=== PATIENT | female | born 1990 | race African-American/Black ===

== ENCOUNTER 2017-02-20 01:36 | Inpatient (IN) ==
[2017-02-20] MEDS ORDERED: BUTORPHANOL 2 MG/ML VIAL IV PRN ×2 (02:56→07:40)
[2017-02-20] MEDS ORDERED: ONDANSETRON 4 MG/2 ML VIAL IV PRN ×2 (02:57→16:26)
[2017-02-20] MEDS: LACTATED RINGERS 1,000 ML IV SCH ×2 (03:00→04:36)
[2017-02-20] MEDS ORDERED: CITRIC ACID/SODIUM CITRATE 30 ML UDCUP PO ONE (07:45)
[2017-02-20] MEDS ORDERED: diphenhydrAMINE 50 MG/1 ML VIAL IV PRN ×2 (07:45)
[2017-02-20] MEDS ORDERED: PROMETHAZINE 25 MG/1 ML VIAL IM ONE (07:45)
[2017-02-20] MEDS ORDERED: hydrOXYzine HCL 25 MG/1 ML VIAL IM PRN (07:45)
[2017-02-20] MEDS ORDERED: fentaNYL 2 MCG/ROPIV 0.2% EPID 150 ML EPIDURAL SCH (07:45)
[2017-02-20] MEDS ORDERED: ePHEDrine 50 MG/ML AMP IV PRN (07:45)
[2017-02-20] MEDS ORDERED: LACTATED RINGERS 1,000 ML IV ONE (07:45)
[2017-02-20] MEDS ORDERED: FAMOTIDINE 20 MG/2 ML VIAL IV ONE (07:45)
[2017-02-20 07:57] LABS: Basophils % 0.3 % (0.0-0.8); Eosinophils # 0.1 10*3/uL (0.0-0.87); Eosinophils % 0.8 % (0.00-10.9); Hematocrit 32.1 VOL% (35.7-47.0); Hemoglobin 11.3 GM/DL (12.0-16.0); Immature Granulocytes % 1.5 %; Immature Granulocytes Absolute 0.17 #; Lymphocytes # 1.7 10*3/uL (1.4-4.0); Lymphocytes % 15.5 % (21.3-54.2); Mean Corpuscular HGB Conc 35.2 GM/DL (32-36); Mean Corpuscular Hemoglobin 32 PG (27-34); Mean Corpuscular Volume 90.9 FL (87-102); Mean Platelet Volume 9.6 FL (9.6-12.0); Monocytes # 1.1 10*3/uL (0.11-0.8); Monocytes % 9.5 % (1.7-12.7); Neutrophils # 8.1 10*3/uL (1.4-7.4); Neutrophils % 72.4 % (38.7-73.9); Platelet Count 160 T/CUMM (130-400); Red Blood Count 3.53 MC/CUMM (3.8-5.5); Red Cell Distribution Width 12.9 % (9.3-17.3); White Blood Count 11.2 T/CUMM (4-12)
[2017-02-20] MEDS ORDERED: LACTATED RINGERS 1,000 ML IV SCH (08:00)
[2017-02-20] MEDS ORDERED: OXYTOCIN/LR 20 UNIT/1,000 ML BAG IV SCH (08:00)
[2017-02-20] MEDS ORDERED: PENICILLIN G POTASSIUM INJ 6,000,000 UNIT in SODIUM CHLORIDE 0.9% 100 ML IV ONE (08:25)
[2017-02-20 09:55] LABS: Rubella Antibody IgG 227.5 IU/ML
[2017-02-20 10:46] LABS: Hepatitis B Surface Ag Quant 0.45 Index; Hepatitis B Surface Ag Result Negative (Negative)
[2017-02-20 11:42] LABS: HIV Antigen/Antibody Result Nonreactive (Nonreactive)
--- NOTE | 2017-02-20 11:52 | OB/GYN History & Physical ---
History of Present Illness Chief complaint: contractions History of present illness: Ms. Hussein is a 26 year old female admitted early this morning with complaints of contractions. 39 4/7 wks. 3 visits. Elective augmentation of contractions. R/B/A reviewed. Pt elects to proceed. H/o substance abuse. Home Medications Medication Instructions Recorded Confirmed Type Pnv No.95/Ferrous Fum/Folic AC 1 each PO DAILY 10/18/16 02/20/17 History [ Tablet] Allergies Allergy/AdvReac Type Severity Reaction Status Date / Time No Known Allergies Allergy Verified 12/03/15 21:29 Medical,Surgical,& Family Hx - Medical History Cardio: No history of: PVD - Surgical History Cardiac Surgeries: Patient Denies: Cardiac Catheterization HEENT Surgeries: Surgical HX of: Tonsilectomy & Adenoidectomy - Family History Family History: Reports;: Family Diabetes (mother, pgm), Family Hypertension ( fmg) Denies;: Family Cancer - Social History Smoking Status: Current every day smoker Frequency of Alcohol Use: None 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 FHTs reassuring. AROM , non particulate, green. 4/60/-1) Assessment and Plan (1) 39 weeks gestation of Status: Acute Assessment and plan: Continue Pitocin AROM 1145 Anticipate Current Visit: Yes Results - Labs CBC & BMP: 02/20/17 07:48
[2017-02-20 12:31] LABS: Barbiturates Screen,Urine Negative (Negative); Benzodiazepines Screen,Urine Negative (Negative); Cannabinoid Screen,Urine Positive (Negative); Opiate Screen,Urine Negative (Negative); Phencyclidine Screen,Urine Negative (Negative)
[2017-02-20] MEDS ORDERED: PENICILLIN G POTASSIUM INJ 3,000,000 UNIT in SODIUM CHLORIDE 0.9% 100 ML IV SCH (13:00)
--- NOTE | 2017-02-20 14:17 | Event Note ---
DELIVERY NOTE of female in [facility] presentation after pushing over 3 contractions. Pitocin was started this morning at ~ 0700. AROM at 1145, 4 cm. 7 lbs 3 oz with APGARS of 8/9. Spontaneous delivery of intact placenta. EBL 300 cc. Bilateral periuretheral tears. Hemostatic NICU present for delivery. Mom and baby doing well.
[2017-02-20 14:39] LABS: Apearance,Urine Clear (Clear); Bilirubin,Urine Negative (Negative); Blood, Urine NEGATIVE (Negative); Glucose,Urine (UA) Negative (Negative); Ketones,Urine Negative (Negative); Nitrite,Urine Negative (Negative); Protein,Urine Negative; RBC,Urine 2 /HPF (0-4); Squamous Epithelial Cell,Urine Occasional /HPF (0-10); Urine Color Straw (Yellow); Urine Specific Gravity 1.015 (1.001-1.035); Urine Urobilinogen 0.2 EU/DL (0.2-1.0); WBC,Urine <1 /HPF (0-6)
[2017-02-20 14:40] LABS: Cord Arterial Blood HCO3 25.7 MMOL/L
[2017-02-20 14:46] LABS: Cord Venous Blood HCO3 22.4 MMOL/L; Cord Venous Blood PCO2 49.3 MMHG
[2017-02-20] MEDS ORDERED: WITCH HAZEL PADS 100/JAR TOP PRN (16:26)
[2017-02-20] MEDS ORDERED: RHO(D) IMMUNE GLOBULIN 300 MCG SYRINGE IM ONE (16:26)
[2017-02-20] MEDS ORDERED: DIPH/TET/ACEL PERT BOOSTER VACCINE 0.5 ML VIAL IM ONE (16:26)
[2017-02-20] MEDS ORDERED: BISACODYL 10 MG SUPP RECTAL PRN (16:26)
[2017-02-20] MEDS ORDERED: ACETAMINOPHEN 325 MG TABLET PO PRN (16:26)
[2017-02-20] MEDS ORDERED: LANOLIN 50% CREAM 0.3 OZ TUBE TOP PRN (16:26)
[2017-02-20] MEDS ORDERED: MEASLES/MUMPS/RUBELLA VACCINE 0.5 ML VIAL SUBCUT ONE (16:26)
[2017-02-20] MEDS ORDERED: HYDROCORTISONE 2.5% RECTAL CREAM 30 GM TUBE TOP PRN (16:26)
[2017-02-20] MEDS ORDERED: BENZOCAINE 20%/MENTHOL 0.5% SPRAY 56 GM CAN TOP PRN (16:26)
[2017-02-20] MEDS: IBUPROFEN 800 MG TABLET PO SCH (18:33)
[2017-02-20] MEDS: DOCUSATE SODIUM 100 MG CAPSULE PO SCH (20:10)
[2017-02-20] MEDS ORDERED: OXYTOCIN/LR 20 UNIT/1,000 ML BAG IV ONE (20:46)
[2017-02-21] MEDS: IBUPROFEN 800 MG TABLET PO SCH ×2 (01:49→18:27)
[2017-02-21 06:39] LABS: Basophils % 0.3 % (0.0-0.8); Eosinophils # 0.1 10*3/uL (0.0-0.87); Eosinophils % 0.7 % (0.00-10.9); Hematocrit 29.9 VOL% (35.7-47.0); Hemoglobin 10.4 GM/DL (12.0-16.0); Immature Granulocytes % 0.9 %; Immature Granulocytes Absolute 0.11 #; Lymphocytes # 1.6 10*3/uL (1.4-4.0); Lymphocytes % 14.2 % (21.3-54.2); Mean Corpuscular HGB Conc 34.8 GM/DL (32-36); Mean Corpuscular Hemoglobin 32 PG (27-34); Mean Corpuscular Volume 92.3 FL (87-102); Mean Platelet Volume 10.3 FL (9.6-12.0); Monocytes # 1.2 10*3/uL (0.11-0.8); Monocytes % 10.2 % (1.7-12.7); Neutrophils # 8.6 10*3/uL (1.4-7.4); Neutrophils % 73.7 % (38.7-73.9); Platelet Count 139 T/CUMM (130-400); Red Blood Count 3.24 MC/CUMM (3.8-5.5); Red Cell Distribution Width 12.7 % (9.3-17.3); White Blood Count 11.6 T/CUMM (4-12)
--- NOTE | 2017-02-21 08:23 | OB/GYN Progress Note ---
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 Exam GROWTH MEDIA MIXER MUSHROOM - Constitutional Vitals: Vital Signs Temp Pulse Resp BP Pulse Ox 02/21/17 07:47 98.2 F 55 L 18 123/77 99 02/21/17 04:00 98.2 F 78 18 112/72 97 02/21/17 01:49 97.3 F L 02/21/17 00:00 97.3 F L 62 18 124/76 97 02/20/17 20:00 97.7 F 51 L 18 119/73 97 02/20/17 19:20 97.7 F 51 L 18 119/73 97 02/20/17 16:50 63 20 114/63 99 02/20/17 16:20 97.6 F 54 L 18 112/70 100 02/20/17 12:00 98.3 F 61 20 102/54 97 02/20/17 08:36 97.3 F L 76 20 105/54 General appearance: normal weight, no acute distress - Head Head exam: Present: normal inspection, normocephalic - Eye Eye exam: Present: EOMI Pupils: Present: CHIKA - GI/Abdominal GI/Abdominal exam: Present: soft. Absent: tenderness Results - Labs CBC & BMP: 02/21/17 05:33
[2017-02-21] MEDS: DOCUSATE SODIUM 100 MG CAPSULE PO SCH ×2 (09:04→21:08)
[2017-02-21] MEDS: ACETAMINOPHEN/CODEINE 300-30 MG TABLET PO PRN ×2 (09:16→15:26)
--- NOTE | 2017-02-22 07:08 | Anesthesia Post-Op ---
Anesthesia Post OP - Post Ansesthetic Evaluation Patient seen in post op: Yes Resp: within normal limits CV: within normal limits Mental: within normal limits Temp: within normal limits [id number]: within normal limits Nausea and Vomiting: within normal limits Pain: within normal limits
[2017-02-22 07:43] VITALS: BP 112/70
[2017-02-22] MEDS: DOCUSATE SODIUM 100 MG CAPSULE PO SCH (08:28)
--- NOTE | 2017-02-22 08:37 | Discharge Summary ---
Hospital Course - Hospital Course Hospital Course: Routine course. Feels good today. Ready to go home Diagnosis - Discharge Diagnosis (1) 39 weeks gestation of Status: Acute (2) Encounter for full-term uncomplicated delivery Status: Acute Discharge Plan - Discharge Data Disposition: Disch To Home/Self Care Condition at Discharge: Stable Discharge Diet: advance to your usual diet Activity: resume usual activities as tolerated Hygiene: may shower Weight Bearing at Discharge: full weight bearing Contact your physician if you experience:: fever over 101, Difficulty voiding, Redness or swelling - Discharge Medications New Ibuprofen Tab [Motrin Tab] 800 mg PO Q8H #30 tablet No Action Pnv No.95/Ferrous Fum/Folic AC [ Tablet] 1 each PO DAILY - Follow Up or Referral - Forms/Instructions Exam - Constitutional Vitals: Period Temp Pulse Resp BP Sys/Mitchell Pulse Ox Last 24 Hr 97.9 F-98.8 F 60-68 18-20 103-124/57-74 95-100 General appearance: normal weight, no acute distress - Head Head exam: Present: normal inspection, normocephalic - Eye Eye exam: Present: EOMI Pupils: Present: CHIKA - GI/Abdominal GI/Abdominal exam: Present: soft. Absent: tenderness DS: Provider Date of admission: 02/20/17 06:29 Primary care physician: . No PCP Attending physician on admission: Valeria Canchola MD Consults: 02/20/17 16:26 Consult to Lining Printer [CONS] Routine Consult Lining Printer: Breast Feeding 02/20/17 16:27 Consult to Case Mgmt/Social Srvs [CONS] Routine Reason for Case Mgmt/Social Srvs: Other Consult Comment: positive for thc this vs. Discharging clinician: Valeria Canchola MD
[2017-02-22] MEDS: ACETAMINOPHEN/CODEINE 300-30 MG TABLET PO PRN (08:45)
--- NOTE | 2017-02-22 14:17 | Pathology Report from [facility] ---
[facility] ACCESSION # : [id number] PATIENT NAME : Jodie Frank ORDERING DR : Valeria Canchola MD CLINICAL HX: Term @ 39.4 wks gestation, HX of THC use daily, meconium stained fluid, limited care POST-OP DX: Same SPECIMEN INFO: Placenta GROSS DESCRIPTION: The specimen is received fresh labeled JODIE FRANK consists of a 448.0 gm placenta measuring 16.0 x 18.0 x 3.0 cm. The membranes are ortiz and translucent. The umbilical cord measures 16.0 cm, contains three vessels and pericentrally inserted. The surface is blue- baig and intact. The maternal surface displays mildly disrupted hemorrhagic cotyledons. No abnormalities are appreciated upon sectioning. Sections submitted: A- membranes and cord, B- and maternal surfaces. DIAGNOSIS FOR JODIE FRANK: PLACENTA: Trivascular umbilical cord. Unremarkable membranes microscopically (meconium staining grossly). Small for gestational age placenta (<10th percentile) with subchorionic fibrin deposition, increased syncytial clumping and focal dystrophic calcification. COLLECTED DATE: 02/21/2017 [facility] REPORT DATE: 02/22/2017 ELECTRONICALLY SIGNED BY: Quoc Vega III, M.D. 02/22/2017 - 9:46:09 RITA
== END 2017-02-22 13:20 | disposition home or self-care (01) | DRG 775 ==
LOC: N.LDOUT 01:36 → N.LD 01:41 → N.OB 16:25
PROVIDERS: ADMIT Obstetrics & Gynecology; ATTEND Obstetrics & Gynecology

== ENCOUNTER 2018-05-10 20:11 | Inpatient (IN) ==
[2018-05-10] MEDS ORDERED: BUTORPHANOL 2 MG/ML VIAL IV PRN (20:39)
[2018-05-10] MEDS ORDERED: ONDANSETRON 4 MG/2 ML VIAL IV PRN (20:39)
[2018-05-10] MEDS ORDERED: CITRIC ACID/SODIUM CITRATE 30 ML UDCUP PO ONE (20:50)
[2018-05-10] MEDS ORDERED: FAMOTIDINE 20 MG/2 ML VIAL IV ONE (20:50)
[2018-05-10] MEDS ORDERED: AMPICILLIN INJ 2,000 MG in SODIUM CHLORIDE 0.9% 100 ML IV SCH (21:00)
[2018-05-10] MEDS ORDERED: fentaNYL 2 MCG/ROPIV 0.2% EPID 100 ML EPIDURAL SCH (21:00)
[2018-05-10] MEDS ORDERED: OXYTOCIN/LR 20 UNIT/1,000 ML BAG IV SCH (21:00)
[2018-05-10 21:02] LABS: Basophils % 0.1 % (0.0-0.8); Eosinophils # 0.1 10*3/uL (0.0-0.87); Eosinophils % 1.2 % (0.00-10.9); Hemoglobin 10.5 GM/DL (12.0-16.0); Immature Granulocytes % 0.8 %; Immature Granulocytes Absolute 0.07 #; Lymphocytes # 1.6 10*3/uL (1.4-4.0); Lymphocytes % 17.3 % (21.3-54.2); Mean Corpuscular Hemoglobin 32 PG (27-34); Mean Corpuscular Volume 90.1 FL (87-102); Mean Platelet Volume 9.9 FL (9.6-12.0); Monocytes # 0.9 10*3/uL (0.11-0.8); Monocytes % 9.6 % (1.7-12.7); Neutrophils # 6.5 10*3/uL (1.4-7.4); Platelet Count 181 T/CUMM (130-400); Red Blood Count 3.33 MC/CUMM (3.8-5.5); Red Cell Distribution Width 12.6 % (9.3-17.3); White Blood Count 9.1 T/CUMM (4-12)
[2018-05-10] MEDS ORDERED: miSOPROStol 200 MCG TABLET ONE (21:02)
[2018-05-10] MEDS ORDERED: ePHEDrine 50 MG/ML AMP ONE (21:02)
[2018-05-10] MEDS: LACTATED RINGERS 1,000 ML IV SCH ×2 (21:10→21:35)
[2018-05-10 21:22] LABS: Albumin 2.7 G/DL (3.4-5.0); Bilirubin,Total 0.4 MG/DL (0.2-1.0); Calcium 8.4 MG/DL (8.5-10.1); Osmolality,Calculated 279.3 MOS/KG (273-304); Potassium 3.2 MMOL/L (3.5-5.1); Total Protein 6.7 G/DL (6.4-8.3)
[2018-05-10] MEDS ORDERED: INFLUENZA VIRUS VACCINE 0.5 ML SYRINGE IM ONE (22:27)
[2018-05-10 22:38] LABS: Apearance,Urine CLEAR (Clear); Bacteria,Urine Occasional /HPF (Few); Bilirubin,Urine Negative (Negative); Blood, Urine Negative (Negative); Glucose,Urine (UA) Negative (Negative); Ketones,Urine Negative (Negative); Nitrite,Urine Negative (Negative); Protein,Urine Negative; RBC,Urine 3 /HPF (0-4); Renal Epithelial Cells,Urine Occasional /HPF (<1); Squamous Epithelial Cell,Urine Occasional /HPF (0-10); Urine Color Yellow (Yellow); Urine Specific Gravity 1.014 (1.001-1.035); WBC,Urine 2 /HPF (0-6)
[2018-05-11] MEDS ORDERED: diphenhydrAMINE 50 MG/1 ML VIAL IV ONE (00:10)
[2018-05-11] MEDS ORDERED: TISSUE ADHESIVE 1 EACH APPLICATOR TOP ONE (01:06)
[2018-05-11] MEDS ORDERED: METHYLERGONOVINE 0.2 MG/1 ML AMP ONE (02:06)
[2018-05-11] MEDS ORDERED: CARBOPROST TROMETHAMINE 250 MCG/ML AMP IM ONE (02:06)
[2018-05-11 02:57] LABS: Cord Arterial Blood HCO3 20.3 MMOL/L
[2018-05-11 02:58] LABS: Cord Venous Blood HCO3 24.4 MMOL/L; Cord Venous Blood PCO2 47.8 MMHG; Cord Venous Blood PO2 31.8 MMHG
[2018-05-11] MEDS ORDERED: LANOLIN 50% CREAM 0.3 OZ TUBE TOP PRN (04:01)
[2018-05-11] MEDS ORDERED: HYDROCORTISONE 2.5% RECTAL CREAM 30 GM TUBE TOP PRN (04:01)
[2018-05-11] MEDS ORDERED: WITCH HAZEL PADS 100/JAR TOP PRN (04:01)
[2018-05-11] MEDS ORDERED: DIPH/TET/ACEL PERT BOOSTER VACCINE 0.5 ML VIAL IM ONE (04:01)
[2018-05-11] MEDS ORDERED: MEASLES/MUMPS/RUBELLA VACCINE 0.5 ML VIAL SUBCUT ONE (04:01)
[2018-05-11] MEDS ORDERED: ACETAMINOPHEN 325 MG TABLET PO PRN (04:01)
[2018-05-11] MEDS ORDERED: BISACODYL 10 MG SUPP RECTAL PRN (04:01)
[2018-05-11] MEDS ORDERED: BENZOCAINE 20%/MENTHOL 0.5% SPRAY 56 GM CAN TOP PRN (04:01)
[2018-05-11] MEDS ORDERED: OXYTOCIN/LR 20 UNIT/1,000 ML BAG IV ONE (04:01)
[2018-05-11] MEDS ORDERED: RHO(D) IMMUNE GLOBULIN 300 MCG SYRINGE IM ONE (04:01)
[2018-05-11] MEDS ORDERED: oxyCODONE/ACETAMINOPHEN 5-325 MG TABLET PO PRN (04:01)
[2018-05-11] MEDS: DOCUSATE SODIUM 100 MG CAPSULE PO SCH ×2 (09:36→19:56)
[2018-05-11] MEDS: IBUPROFEN 800 MG TABLET PO PRN ×2 (10:30→19:56)
[2018-05-11 11:09] LABS: Basophils % 0.1 % (0.0-0.8); Eosinophils # 0.1 10*3/uL (0.0-0.87); Eosinophils % 0.4 % (0.00-10.9); Hematocrit 31.5 VOL% (35.7-47.0); Hemoglobin 10.8 GM/DL (12.0-16.0); Immature Granulocytes % 0.8 %; Lymphocytes # 1.4 10*3/uL (1.4-4.0); Mean Corpuscular HGB Conc 34.3 GM/DL (32-36); Mean Corpuscular Hemoglobin 31 PG (27-34); Mean Corpuscular Volume 90.8 FL (87-102); Mean Platelet Volume 10.1 FL (9.6-12.0); Monocytes # 1.3 10*3/uL (0.11-0.8); Monocytes % 10.6 % (1.7-12.7); Neutrophils # 9.7 10*3/uL (1.4-7.4); Neutrophils % 77.1 % (38.7-73.9); Platelet Count 159 T/CUMM (130-400); Red Blood Count 3.47 MC/CUMM (3.8-5.5); Red Cell Distribution Width 12.5 % (9.3-17.3); White Blood Count 12.6 T/CUMM (4-12)
[2018-05-12 02:38] LABS: Basophils % 0.3 % (0.0-0.8); Eosinophils # 0.1 10*3/uL (0.0-0.87); Hematocrit 31.7 VOL% (35.7-47.0); Hemoglobin 10.7 GM/DL (12.0-16.0); Immature Granulocytes % 0.8 %; Immature Granulocytes Absolute 0.09 #; Lymphocytes # 2.4 10*3/uL (1.4-4.0); Lymphocytes % 20.3 % (21.3-54.2); Mean Corpuscular HGB Conc 33.8 GM/DL (32-36); Mean Corpuscular Hemoglobin 31 PG (27-34); Mean Corpuscular Volume 91.4 FL (87-102); Mean Platelet Volume 10.2 FL (9.6-12.0); Monocytes # 1.3 10*3/uL (0.11-0.8); Monocytes % 10.7 % (1.7-12.7); Neutrophils # 7.8 10*3/uL (1.4-7.4); Neutrophils % 66.9 % (38.7-73.9); Platelet Count 165 T/CUMM (130-400); Red Blood Count 3.47 MC/CUMM (3.8-5.5); Red Cell Distribution Width 12.5 % (9.3-17.3); White Blood Count 11.7 T/CUMM (4-12)
[2018-05-12] MEDS: oxyCODONE/ACETAMINOPHEN 5-325 MG TABLET PO PRN ×2 (05:26→19:54)
[2018-05-12] MEDS: DOCUSATE SODIUM 100 MG CAPSULE PO SCH ×4 (05:37→22:38)
[2018-05-13] MEDS: IBUPROFEN 800 MG TABLET PO PRN ×2 (04:12→11:33)
[2018-05-13 07:15] VITALS: BP 133/83
[2018-05-13] MEDS: DOCUSATE SODIUM 100 MG CAPSULE PO SCH (09:30)
[2018-05-13] MEDS: oxyCODONE/ACETAMINOPHEN 5-325 MG TABLET PO PRN (11:33)
== END 2018-05-13 20:44 | disposition home or self-care (01) | DRG 560 ==
LOC: N.LDOUT 20:11 → N.LD 20:12 → N.OB 05-11 11:51
PROVIDERS: ADMIT Obstetrics & Gynecology; ATTEND Obstetrics & Gynecology